=== PATIENT | male | born 1955 | race Caucasian/White ===

== ENCOUNTER 2018-06-08 07:33 | Day surgery (SDC) | payer MEDICARE ==
[2018-06-08] MEDS ORDERED: LIDOCAINE 2% MDV (20MG/ML) 20ML VIAL IV ONE (07:34)
[2018-06-08] MEDS ORDERED: PROPOFOL 10 MG/ML VIAL IV ONE (07:34)
--- NOTE | 2018-06-08 16:00 | Operative Note ---
DATE OF SURGERY: 06/08/2018 OPERATION: COLONOSCOPY to the cecum. INDICATION: Colorectal cancer screening. ANESTHESIA: Intravenous sedation was administered by the department of anesthesiology and included Diprivan titrated to effect. PROCEDURE: Following informed consent from this alert individual including a discussion of the risks and benefits of the procedure and an opportunity for the patient to ask questions, the patient was in the left lateral decubitus position. A digital rectal examination was performed. No abnormalities were noted. Following this, the Olympus [id number] video colonoscope was inserted into the rectum without resistance. The rectal mucosa had a normal appearance with normal folds and distensibility. The colonoscope was advanced into the sigmoid colon where scattered diverticula were noted. It was farther advanced up through the remainder of the bowel to the level of the cecum. Throughout the remainder of the bowel, the mucosa appeared normal, the folds were normal, and the bowel was fairly well distensible. The cecum was defined by noting the appendiceal orifice and ileocecal valve. From the base of the cecum, the colonoscope was then slowly withdrawn. The colon preparation was adequate. No additional changes were appreciated throughout. Again diverticulosis was noted in the sigmoid colon. Retroflexion in the rectum revealed a small internal hemorrhoid. The endoscope was straightened and withdrawn. The patient tolerated the procedure well and was returned to the recovery area in stable condition. IMPRESSION: 1. Sigmoid diverticulosis. 2. Small internal hemorrhoid. RECOMMENDATIONS: The patient was advised to have recheck colonoscopy in 10 years' time or sooner if problems arise. Followup will be with Dr. Grissom. As always, thank you for allowing me to participate in the care of your patient. CC: ESTRELLITA GRISSOM MD, FACP [facility]
== END 2018-06-08 09:26 | disposition home or self-care (01) ==
LOC: HOP 07:33
PROVIDERS: ATTEND Internal Medicine Gastroenterology
DX: Z12.11 Encounter for screening for malignant neoplasm of colon (principal); K57.30 Diverticulosis of large intestine without perforation or abscess without bleeding; E11.9 Type 2 diabetes mellitus without complications; I10 Essential (primary) hypertension; E78.00 Pure hypercholesterolemia, unspecified; R42 Dizziness and giddiness; G62.9 Polyneuropathy, unspecified
CPT/HCPCS: 00812; G0121